=== PATIENT | female | born 1990 ===

== ENCOUNTER 2018-05-23 23:30 | Emergency (ER) | payer SELFPAY ==
[2018-05-23 23:57] VITALS: BMI 29.9
[2018-05-24 00:51] LABS: SQUAMOUS EPITHIAL 7 /hpf (0-5); URINE BACTERIA RARE (<OCC); URINE BILIRUBIN NEGATIVE (NEGATIVE); URINE BLOOD NEGATIVE (NEGATIVE); URINE CLARITY Hazy (Clear); URINE COLOR Yellow (YELLOW); URINE GLUCOSE (UA) NORMAL (Normal); URINE LEUKOCYTE ESTERASE NEG Leu/uL (Negative); URINE PROTEIN NEGATIVE (NEGATIVE)
[2018-05-24 01:32] LABS: BARBITURATES, UR NEGATIVE (NEGATIVE); BENZODIAZEPINES, UR NEGATIVE (NEGATIVE); OPIATES, UR NEGATIVE (NEGATIVE); PHENCYCLIDINE, UR NEGATIVE (NEGATIVE)
--- NOTE | 2018-05-24 13:23 | OBADHP ---
Datetime: 05/24/2018 07:50 Admit Comment, IP Provider: 27 yo female with an IUP at 38.4 weeks per her information. No care records and no PNC visits wince 30 weeks because she lost her insurance. State s that her last US was at 20 weeks and only had initial labs done. Admits to adequate FM and denies L OF, VB or Vd. PMHx and PSHx Negative NKDA Medications: PNV Social Hx Denies x 3 A/P Term not in labor NST reactive UA, CBC and CMP done and WNL Hx of previous C/S x 2 PO water given and advised to increase po water intake Advised to seek care at a Clinic and have them request her PNC records from her previous OB Labor precautions reviewed with patient and verbalized understanding Discharge home with instructions and in Stable and Satisfactory condition. Pelvic Type - PN: Adequate Extremities - PN: Normal Abdomen - PN: Normal Back - PN: Normal Breast - PN: Not Done Lungs - PN: Normal Heart - PN: Normal Thyroid - PN: Normal Neurologic - PN: Normal HEENT - PN: Normal General - PN: Normal Presentation-Admit: Vertex FHR - Baseline A Provider: 130 Membranes, Provider: Intact Contraction Comments Provider: Rare Gestation - Est Wks by US: 38.4 Vital Signs Provider: Reviewed IP Chief Complaint: Uterine contractions NICHD Variability Prov Fetus A: Moderate 6-25bpm NICHD Accel Fetus A IP Provider: [id number] FHR Category Provider Fetus A: Category I NICHD Decel Fetus A IP Provider: None Dilatation, Provider: 0 Effacement, Provider: 0 Station, Provider: -3 Genitourinary Exam: Normal DTRs - PN: Normal EGA AdmitDate IP: 38.4 IP Adm Impression: Term, intrauterine ; No Active Labor; Intact Membranes IP Admit Plan: Observation/Evaluation
[2018-05-24 17:23] VITALS: BP 107/72; PULSE 85; RESP 18; TEMP 97.9
== END 2018-05-24 02:09 | disposition home or self-care (01) ==
LOC: C.EROB 23:30
DX: O09.33 Supervision of pregnancy with insufficient antenatal care, third trimester (principal); Z3A.30 30 weeks gestation of pregnancy
CPT/HCPCS: 81001; 99283; G0480